=== PATIENT | male | born 1990 | race Caucasian/White ===

== ENCOUNTER 2017-05-12 11:11 | Emergency (ER) | payer SELFPAY ==
[2017-05-12 11:18] VITALS: BMI 24.3
[2017-05-12] MEDS ORDERED: NS 1000 ML 1,000 ML IV ONE (12:32)
[2017-05-12] MEDS ORDERED: ZOFRAN INJ 4 MG VIAL IVP ONE (12:32)
[2017-05-12] MEDS ORDERED: ZOFRAN INJ 4 MG VIAL ONE (12:35)
[2017-05-12] MEDS ORDERED: NS 1000 ML 1,000 ML ONE (12:35)
--- NOTE | 2017-05-12 12:35 | DR.DETOX ---
HPI - Time seen Time seen: 12:30 - PCP Primary Care Physician: NFD - Complaint/Symptoms Chief Complaint:: PT IS TO BE ADMITTED AT 21/7 DETOX ON SATURDAY AND THAT HE WANTS HIM TO DETOX AND PT IS TO WITHDRAWL FROM ETOH THIS WEEKEND.. Self Treatment fo Chief Complaint: PT WENT ON A BINDE ON SATURDAY AND THAT IS THE LAST TIME HE HAD BEER.. 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 - Source History Provided: Patient - Mode of arrival Mode of Arrival: Ambulatory - Timing Onset of Chief Complaint: 05/12/17 PMH - PMH Past Medical History: Yes Past Medical History Comment: DEPRESSION, ANXIETY . Past Surgical History: Yes Surgical History: Ortho Surgery Past Surgical History Comment: LEFT ARM, FX - Family History History of Family Medical Conditions: Yes Family Medical History Comment: ANX, DEPRES - Social History Does patient currently use any type of tobacco product: No Have you used tobacco products in the last 12 months: No Type of Tobacco Use: None Does any household member use tobacco: No Alcohol Use: Heavy Do you use any recreational Drugs:: No Lives Where: Home - infectious screening In the last 2 months have you had wt loss of >10#?: NO Have you had fever, night sweats or hemotysis?: No Have you traveled outside the country in the last 6 months?: No Isolation: Standard ROS - Review of Systems Eyes: No Symptoms Reported ENTM: No Symptoms Reported Respiratoy: No Symptoms Reported Cardiovascular: No Symptoms Reported Gastrointestinal/Abdominal: No Symptoms Reported Genitourinary: No Symptoms Reported Neurological: No Symptoms Reported Musculoskeletal: No Symptoms Reported Integumentary: No Symptoms Reported Hematologic/Lymphatic: No Symptoms Reported Endocrine: No Symptoms Reported Psychiatric: No Symptoms Reported All Other Systems: Reviewed and Negative PE - Vital Signs Vitals: Temperature 98.0 F Pulse Rate 108 Respiratory Rate 20 Blood Pressure [Right Arm] 133/83 Blood Pressure 136/86 O2 Sat by Pulse Oximetry 98 - General Limitations: No Limitations General Appearance: Alert, In No Apparent Distress, Anxious - Head Head Exam: Normal Inspection, Atraumatic - Eyes Eye exam: Normal Appearance, PERRL, EOMI Eyelids: Normal Inspection: Bilateral Pupils: Regular, Round: Left Sclera/Conjunctival: Normal Inspection: Bilateral - ENT ENT Exam: Normal Exam, Normal Oropharynx - Neck Neck Exam: Normal Inspection - Chest Chest Inspection: Normal Inspection - Respiratory Respiratory Exam: Normal Lung Sounds Bilat Respiratory Exam: Bilateral Clear to Auscultation - Cardiovascular Cardiovascular Exam: Regular Rate, Normal Rhythm - Abdominal Exam Abdominal Exam: Normal Inspection, Normal Bowel Sounds Abdominal Tenderness: negative: RUQ, RLQ, LUQ, LLQ, Epigastrium, Suprapubic, Diffuse, Mild, Moderate, Severe, Other - Extremities Extremities Exam: Normal Inspection, Full ROM - Back Back Exam: Normal Inspection, Full ROM - Neurologic Neurological Exam: Alert, Oriented X3, CN II-XII Intact Speech: Fluid Speech Cranial Nerve Exam: EOM Function (II, III, IV, ): Normal Cerebellar Function: Finger to Nose: Normal - Psychiatric Psychiatric Exam: Normal Affect, Depressed Expanded Psychiatric Exam: Poor Eye Contact - Skin Skin Exam: Warm, Dry, Intact Course - Reevaluation 1st: Improved 2nd: Improved ROR - Labs Reviewed Laboratory Results Reviewed?: Yes Result Diagrams: 05/12/17 12:31 05/12/17 12:40 Laboratory: WBC 7.7 X10^3/uL (3.6-10.0) 05/12/17 12:31 RBC 5.00 X10^6/uL (4.7-6.0) 05/12/17 12:31 Hgb 15.3 g/dL (13.5-18.0) 05/12/17 12:31 Hct 44.3 % (42.0-54.0) 05/12/17 12:31 MCV 88.6 fL (80.0-100.0) 05/12/17 12:31 MCH 30.6 pg (27.0-34.0) 05/12/17 12:31 MCHC 34.6 g/dL (33.0-35.0) 05/12/17 12:31 RDW 14.0 % (11.6-16.5) 05/12/17 12:31 Plt Count 132 X10^3/uL (150.0-450.0) L 05/12/17 12:31 MPV 8.8 fL (7.4-11.0) 05/12/17 12:31 Neut % 81.1 % (42.0-75.0) H 05/12/17 12:31 Lymph % 8.3 % (21.0-51.0) L 05/12/17 12:31 Frio % 9.7 % (0.0-13.0) 05/12/17 12:31 Eos % 0.2 % (0.9-2.9) L 05/12/17 12:31 Baso % 0.7 % (0.2-1.0) 05/12/17 12:31 Neut # 6.3 x10^3/uL (2.2-4.8) H 05/12/17 12:31 Lymph # 0.6 X10^3/uL (1.3-2.9) L 05/12/17 12:31 Frio # 0.7 x10^3/uL (0.3-0.8) 05/12/17 12:31 Eos # 0.0 x10^3/uL (0.0-0.2) 05/12/17 12:31 Baso # 0.1 X10^3/uL (0.0-0.1) 05/12/17 12:31 Absolute Nucleated RBC 0.0 /100WBC 05/12/17 12:31 Sodium 136 mmol/L (136-145) 05/12/17 12:40 Corrected Sodium TNP 05/12/17 12:40 Potassium 3.8 mmol/L (3.5-5.1) 05/12/17 12:40 Chloride 100 mmol/L (98-107) 05/12/17 12:40 Carbon Dioxide 28.5 mmol/L (21-32) 05/12/17 12:40 BUN 12 mg/dL (7-18) 05/12/17 12:40 Creatinine 1.11 mg/dL (0.70-1.30) 05/12/17 12:40 Est GFR (MDRD) Af Amer > 60 (>60) 05/12/17 12:40 Est GFR (MDRD) Non-Af > 60 (>60) 05/12/17 12:40 Glucose 106 mg/dL (65-99) H 05/12/17 12:40 Calcium 9.3 mg/dL (8.5-10.1) 05/12/17 12:40 Corrected Calcium TNP 05/12/17 12:40 Total Bilirubin 0.70 mg/dL (0.2-1.0) 05/12/17 12:40 AST 33 Units/L (15-37) 05/12/17 12:40 ALT 33 Units/L (12-78) 05/12/17 12:40 Alkaline Phosphatase 78 Units/L (46-116) 05/12/17 12:40 Total Protein 7.7 g/dL (6.4-8.2) 05/12/17 12:40 Albumin 4.1 g/dL (3.4-5.0) 05/12/17 12:40 Globulin 3.6 g/dL (2.5-4.5) 05/12/17 12:40 Albumin/Globulin Ratio 1.1 Ratio (1.1-2.1) 05/12/17 12:40 Specimen Type Clean catch urine 05/12/17 12:47 Urine Color Yellow (YELLOW) 05/12/17 12:47 Urine Appearance Slightly hazy (CLEAR) 05/12/17 12:47 Urine pH 8.0 (5.0 - 8.0) 05/12/17 12:47 Ur Specific [place] 1.010 (1.000-1.030) 05/12/17 12:47 Urine Protein 1+ (NEGATIVE) 05/12/17 12:47 Urine Glucose (UA) Negative (NEGATIVE) 05/12/17 12:47 Urine Ketones Negative (NEGATIVE) 05/12/17 12:47 Urine Occult Blood Negative (NEGATIVE) 05/12/17 12:47 Urine Nitrite Negative (NEGATIVE) 05/12/17 12:47 Urine Bilirubin Negative (NEGATIVE) 05/12/17 12:47 Urine Urobilinogen Normal (NORMAL) 05/12/17 12:47 Ur Leukocyte Esterase 1+ (NEGATIVE) 05/12/17 12:47 Urine RBC Rare /HPF (NEGATIVE) 05/12/17 12:47 Urine WBC Rare /HPF (NEGATIVE) 05/12/17 12:47 Ur Squamous Epith Cells Rare /HPF (NEGATIVE) 05/12/17 12:47 Amorphous Sediment 2+ /HPF (NEGATIVE) 05/12/17 12:47 Urine Bacteria Negative /HPF (NEGATIVE) 05/12/17 12:47 Urine Mucus Moderate /HPF (NEGATIVE) 05/12/17 12:47 Ur Culture Indicated? No/not indicated 05/12/17 12:47 Urine Opiates Screen Negative (NEG=<300) 05/12/17 12:48 Urine Methadone Screen Negative (NEG=<300) 05/12/17 12:48 Ur Barbiturates Screen Negative (NEG=<200) 05/12/17 12:48 Ur Phencyclidine Scrn Negative (NEG=<25) 05/12/17 12:48 Ur Amphetamines Screen Negative (NEG=<1000) 05/12/17 12:48 U Benzodiazepines Scrn Negative (NEG=<200) 05/12/17 12:48 Urine Cocaine Screen Negative (NEG=<300) 05/12/17 12:48 U Marijuana (THC) Screen Negative (NEG=<50) 05/12/17 12:48 Ethyl Alcohol mg/dL < 3.0 mg/dL (0-19.9) 05/12/17 12:40 - Diagnosis Discharge Problem: Alcoholic - Discharge Plan Condition: Stable - Follow ups/Referrals Follow ups/Referrals: NFD,None [Primary Care Provider] - 3 days - Instructions
[2017-05-12] MEDS ORDERED: THIAMINE HCL INJ ONE (12:39)
[2017-05-12] MEDS ORDERED: MAGNESIUM SULFATE 50% INJ ONE (12:39)
[2017-05-12] MEDS ORDERED: PHENOBARBITAL SODIUM INJ 65 MG VIAL ONE (12:39)
[2017-05-12] MEDS ORDERED: MVI INJ (ADULT) IV ONE (12:41)
[2017-05-12] MEDS ORDERED: ATIVAN INJ 2 MG VIAL IVP ONE (12:46)
[2017-05-12] MEDS ORDERED: ATIVAN INJ 2 MG VIAL ONE (12:46)
[2017-05-12 12:47] LABS: BASOPHILS # (AUTO) 0.1 X10^3/uL (0.0-0.1); BASOPHILS % (AUTO) 0.7 % (0.2-1.0); EOSINOPHILS % (AUTO) 0.2 % (0.9-2.9); HEMATOCRIT 44.3 % (42.0-54.0); HEMOGLOBIN 15.3 g/dL (13.5-18.0); LYMPHOCYTES # (AUTO) 0.6 X10^3/uL (1.3-2.9); LYMPHOCYTES % (AUTO) 8.3 % (21.0-51.0); MEAN CORPUSCULAR HEMOGLOBIN 30.6 pg (27.0-34.0); MEAN CORPUSCULAR HGB CONC 34.6 g/dL (33.0-35.0); MEAN CORPUSCULAR VOLUME 88.6 fL (80.0-100.0); MEAN PLATELET VOLUME 8.8 fL (7.4-11.0); MONOCYTES # (AUTO) 0.7 x10^3/uL (0.3-0.8); MONOCYTES % (AUTO) 9.7 % (0.0-13.0); NEUTROPHILS # (AUTO) 6.3 x10^3/uL (2.2-4.8); NEUTROPHILS % (AUTO) 81.1 % (42.0-75.0); PLATELET COUNT 132 X10^3/uL (150.0-450.0); WHITE BLOOD COUNT 7.7 X10^3/uL (3.6-10.0)
[2017-05-12 12:57] LABS: ALANINE AMINOTRANSFERASE 33 Units/L (12-78); ALBUMIN 4.1 g/dL (3.4-5.0); ALKALINE PHOSPHATASE 78 Units/L (46-116); ASPARTATE AMINO TRANSFERASE 33 Units/L (15-37); BLOOD UREA NITROGEN 12 mg/dL (7-18); CALCIUM 9.3 mg/dL (8.5-10.1); CARBON DIOXIDE 28.5 mmol/L (21-32); CHLORIDE 100 mmol/L (98-107); CREATININE 1.11 mg/dL (0.70-1.30); SODIUM 136 mmol/L (136-145); TOTAL PROTEIN 7.7 g/dL (6.4-8.2); eGFR BLACK RACES > 60 (>60); eGFR NON BLACK RACES > 60 (>60)
[2017-05-12 12:58] LABS: BILIRUBIN,URINE NEGATIVE (NEGATIVE); BLOOD/HEMOGLOBIN,URINE NEGATIVE (NEGATIVE); GLUCOSE, URINE NEGATIVE (NEGATIVE); KETONES,URINE NEGATIVE (NEGATIVE); LEUKOCYTE ESTERASE ,URINE 1+ (NEGATIVE); NITRITES,URINE NEGATIVE (NEGATIVE); PROTEIN,URINE 1+ (NEGATIVE); UROBILINOGEN,URINE NORMAL (NORMAL)
[2017-05-12] MEDS ORDERED: NS 1000 ML 1,000 ML with THIAMINE HCL INJ 100 MG, MAGNESIUM SULFATE 50% INJ 1 GM, MVI I... IV SCH ×5 (13:00)
[2017-05-12 13:04] LABS: BLOOD ALCOHOL < 3.0 mg/dL (0-19.9)
[2017-05-12 13:13] LABS: APPEARANCE,URINE SLIGHTLY HAZY (CLEAR); COLOR,URINE YELLOW (YELLOW); RBC,URINE RARE /HPF (NEGATIVE); SQUAMOUS EPITHELIAL CELL,UR RARE /HPF (NEGATIVE)
[2017-05-12 13:14] LABS: AMORPHOUS SEDIMENT,UR 2+ /HPF (NEGATIVE); MUCUS,URINE MODERATE /HPF (NEGATIVE)
[2017-05-12 13:21] LABS: BACTERIA,URINE NEGATIVE /HPF (NEGATIVE)
[2017-05-12 15:04] VITALS: BP 133/83
== END 2017-05-12 15:46 | disposition home or self-care (01) ==
LOC: ER 11:23
DX: F10.20 Alcohol dependence, uncomplicated (principal)
CPT/HCPCS: 36415; 80053; 80307; 80320; 81001; 85025; 96365; 96367; 96374; 96375; 99282; 99283; A4222; G0434; G6040; J2060; J2405; J2560; J3411; J3475